=== PATIENT | female | born 1995 | race American Indian/Alaskan Native ===

== ENCOUNTER 2017-03-04 21:20 | Inpatient (IN) | payer MEDICAID ==
[2017-03-04] MEDS ORDERED: LACTATED RINGERS 1,000 ML ONE (22:05)
[2017-03-04] MEDS ORDERED: POLYCILLIN/NS 2 GM/100 ML 2 GM/100 ML BAG IV ONE ×2 (22:30→23:11)
[2017-03-04 22:52] LABS: Hematocrit 38.6 % (30.3-42.9); Hemoglobin 12.5 gm/dl (10.1-14.3); Mean Corpuscular HGB Conc 33 % (30-34); Mean Corpuscular Hemoglobin 32 pg (28-32); Mean Corpuscular Volume 97 fl (79-97); Platelet Count 179 K/mm3 (140-440); Red Blood Count 3.98 M/mm3 (3.65-5.03); Red Cell Distribution Width 13.8 % (13.2-15.2); White Blood Count 9.6 K/mm3 (4.5-11.0)
[2017-03-04] MEDS ORDERED: ePHEDrine SULFATE IV PRN (23:11)
[2017-03-04] MEDS ORDERED: ZOFRAN IV PRN (23:11)
[2017-03-04] MEDS ORDERED: SUBLIMAZE IV PRN (23:11)
[2017-03-04] MEDS ORDERED: STADOL IV PRN (23:11)
[2017-03-04] MEDS ORDERED: BRETHINE IVP PRN (23:11)
[2017-03-04] MEDS ORDERED: BRETHINE SUB-Q PRN (23:11)
[2017-03-04] MEDS ORDERED: NARCAN 0.4 MG/1 ML IV PRN (23:11)
[2017-03-04] MEDS ORDERED: MINERAL OIL PO PRN (23:11)
[2017-03-04] MEDS ORDERED: XYLOCAINE 2% INFILTRATI ONE (23:11)
[2017-03-04] MEDS ORDERED: PITOCin/NS 20 UNIT/1000ML DRIP 20 UNITS/1,000 ML BAG IV SCH (23:45)
[2017-03-05] MEDS: PITOCin/NS 30 UNIT/500ML 30 UNITS/500 ML BAG IV SCH ×2 (02:15→07:31)
[2017-03-05] MEDS: POLYCILLIN/NS 1 GM/50 ML 1 GM/50 ML BAG IV SCH ×2 (02:15→07:30)
[2017-03-05] MEDS: LACTATED RINGERS 1,000 ML IV SCH ×2 (07:30→11:28)
[2017-03-05] MEDS ORDERED: ePHEDrine SULFATE ONE (09:21)
--- NOTE | 2017-03-05 09:32 | Ultrasound Report ---
ULTRASOUND OB LIMITED History: well being Technique: Transabdominal ultrasound with Doppler interrogation. Gestation: Single Position: Cephalic Amniotic Fluid: Normal ANNIE = 9.8 cm Placenta: Anterior Placental Grade: 1 Heart Rate: 152 BPM Cervical length: Obscured cm (Normal > 3 cm)
[2017-03-05] MEDS ORDERED: fentaNYL-BUPIV 2 MCG/ML-0.125% 200 MCG/100 ML BAG EPIDURAL ONE (10:02)
[2017-03-05] MEDS ORDERED: ePHEDrine SULFATE IV PRN (10:04)
--- NOTE | 2017-03-05 10:04 | Anesthesia Consultation ---
Anesthesia Consult and Med Hx Date of service: 03/05/17 - Airway Anesthetic Teeth Evaluation: Good ROM Head & Neck: Adequate Mental/Hyoid Distance: Adequate Intubation Access Assessment: Probably Good - Pre-Operative Health Status ASA Pre-Surgery Classification: ASA2, Emergency Proposed Anesthetic Plan: Epidural, Spinal - Pulmonary Hx Asthma: No COPD: No Hx Pneumonia: No - Cardiovascular System Hx Hypertension: No Hx Heart Attack/AMI: No Hx Valvular Heart Disease: No - Central Nervous System Hx Seizures: No CVA: No Hx Psychiatric Problems: No - Endocrine Hx Renal Disease: No Hx End Stage Renal Disease: No Hx Liver Disease: No Hx Hypothyroidism: No Hx Hyperthyroidism: No - Hematic Hx Anemia: No Hx Sickle Cell Disease: No - Other Systems Hx Alcohol Use: No Hx Substance Use: Yes (marijuana 2-3x/week) Hx Cancer: No
[2017-03-05] MEDS ORDERED: XYLOCAINE MPF 2% ONE (10:19)
[2017-03-05] MEDS ORDERED: fentaNYL-BUPIV 2 MCG/ML-0.125% 200 MCG/100 ML BAG EPIDURAL SCH (11:00)
--- NOTE | 2017-03-05 11:39 | History and Physical Report ---
History of Present Illness Date of examination: 03/05/17 Date of admission: 03/04/17 21:59 Chief complaint: rupture of membranes History of present illness: Pt is a 21 year old -[place] female KIRSTY 03/19/17 at 38w0d who presents with rupture of membranes at 2020 pm on 03/04/17. She denies contractions or vaginal bleeding. She has had care at [facility] since 8 wks complicated by obesity.She is GBS unknown. Past History Past Medical History: other (Obesity ) Past Surgical History: no surgical history Family/Genetic History: hypertension Social history: no significant social history - Obstetrical History Expected Date of Delivery: 03/19/17 Actual Gestation: 38 Week(s) 0 Day(s) : 2 Para: 1 Hx # Term Pregnancies: 1 Number of Pregnancies: 0 Spontaneous Abortions: 0 Induced : 0 Number of Living Children: 1 Medications and Allergies Allergies Allergy/AdvReac Type Severity Reaction Status Date / Time No Known Allergies Allergy Verified 10/16/13 14:55 Home Medications Medication Instructions Recorded Confirmed Last Taken Type Vit-Fe Fumar-FA [ 1 tab PO QDAY 03/04/17 03/04/17 03/03/17 History Vitamin] Active Meds: Active Medications Butorphanol Tartrate (Stadol) 2 mg IV Q2H PRN PRN Reason: Pain , Severe (7-10) Fentanyl (Sublimaze) 100 mcg IV Q2H PRN PRN Reason: Labor Pain Last Admin: 03/05/17 08:09 Dose: 100 mcg Ampicillin Sodium (Polycillin/Ns 1 Gm/50 Ml) 1 gm in 50 mls @ 100 mls/hr IV Q4HR SEFERINO PRN Reason: Protocol Last Admin: 03/05/17 07:30 Dose: 100 mls/hr Lactated Ringer's (Lactated Ringers) 1,000 mls @ 125 mls/hr IV DIRECT SEFERINO Last Admin: 03/05/17 11:28 Dose: 125 mls/hr Oxytocin/Sodium Chloride (Pitocin/Ns 20 Unit/1000ml Drip) 20 units in 1,000 mls @ 125 mls/hr IV DIRECT SEFERINO Oxytocin/Sodium Chloride (Pitocin/Ns 30 Unit/500ml) 30 units in 500 mls @ 4 mls /hr IV TITR SEFERINO PRN Reason: Protocol Last Titration: 03/05/17 11:28 Dose: 20 ml/hr, 20 mls/hr Fentanyl/Bupivacaine/Sodium Chlor (Fentanyl-Bupiv 2 Mcg/Ml-0.125%) 200 mcg in 100 mls @ 12 mls/hr EPIDURAL TITR SEFERINO PRN Reason: Protocol Mineral Oil (Mineral Oil) 30 ml PO QHS PRN PRN Reason: Constipation Naloxone HCl (Narcan 0.4 Mg/1 Ml) 0.1 mg IV Q2MIN PRN PRN Reason: Res Rate </= 8 or 02 SAT < 92% Ondansetron HCl (Zofran) 4 mg IV Q8H PRN PRN Reason: Nausea And Vomiting Review of Systems All systems: negative - Vital Signs Vital signs: Vital Signs Temp Resp 98.5 F 22 03/04/17 21:35 03/04/17 21:35 Temp Pulse Resp BP Pulse Ox 98.0 F 76 18 107/57 100 03/05/17 10:31 03/05/17 11:39 03/05/17 10:31 03/05/17 10:59 03/05/17 11:39 - Physical Exam Breasts: Positive: deferred Cardiovascular: Regular rate Lungs: Positive: Clear to auscultation Abdomen: Positive: soft (obese, gravid ) Genitourinary (Female): Positive: normal external genitalia Uterus: Positive: enlarged (gravid ) Extremities: Positive: normal - Obstetrical FHR: auscultation normal Uterine Contraction Monitor Mode: External Cervical Dilatation: 5.5 Cervical Effacement Percentage: 80 station: -3 Uterine Contraction Pattern: Regular Uterine Tone Measurement Phase: Resting Uterine Contraction Intensity: Moderate Results Result Diagrams: 03/04/17 22:20 All other labs normal. Assessment and Plan A: IUP at 38w0d Premature rupture of membranes Obesity GBS unknown P: Admit to labor and delivery. GBS prophylaxis Routine intrapartum care. IUPC and FSE placed secondary to difficulty monitoring the contraction pattern and heart tones.
--- NOTE | 2017-03-05 11:41 | Event Note ---
Date: 03/05/17 Pt comfortable with epidural. FHTs: Category II with variable decel to 80s with contractions. SVE: /-1. Continue intrapartum care. Begin amnioinfusion. Closely monitor maternal and status.
[2017-03-05] MEDS ORDERED: NACL 0.9% 500 ML IV SCH (12:00)
--- NOTE | 2017-03-05 13:43 | Event Note ---
Date: 03/05/17 Pt comfortable with epidural. FHTs Category II Tracing. SVE:100/0. Pt too numb to push. Plan to decrease epidural by half and labor down. Continue routine intrapartum care.
--- NOTE | 2017-03-05 14:36 | Procedure Note ---
OB Delivery Note - Delivery Date of Delivery: 03/05/17 Surgeon: CASSIA LINDQUIST Estimated blood loss: 200cc - Vaginal Delivery presentation: vertex Delivery position: OA Intrapartum events: PROM->1hr before delivery, decreased FHT variability, mult.variable deceleratio Delivery induction: none Delivery augmentation: rupture of membranes, pitocin Delivery monitor: internal FHT, internal uterine Route of delivery: Delivery placenta: spontaneous Delivery cord: 3 umbilical vessels Episiotomy: none Delivery laceration: none Anesthesia: epidural Delivery comments: Pt progressed to complete/complete/+2 and pushed to deliver a viable female over intact perineum under epidural anesthesia by . Head delivered inn SYLVIA position quickly followed by shoulders and body. Tight nuchal cord x 1 delivered through. Cord clamped and cut and handed to nurse in attendance. Placenta delivered spontaneously. Vagina and perineum explored. No lacerations noted. EBL 200 mL. - Infant A at 1 minute: 8 at 5 minutes: 9 Gender: Female (2840g (6lb 4 oz))
[2017-03-05] MEDS ORDERED: MOTRIN PO PRN ×2 (16:10→17:08)
[2017-03-05] MEDS ORDERED: PHENERGAN PO PRN (17:08)
[2017-03-05] MEDS ORDERED: LANSINOH TP PRN (17:08)
[2017-03-05] MEDS ORDERED: NORCO 5/325 PO PRN (17:08)
[2017-03-05] MEDS ORDERED: BENADRYL PO PRN (17:08)
[2017-03-05] MEDS ORDERED: DULCOLAX PR PRN (17:08)
[2017-03-05] MEDS ORDERED: PHENERGAN PR PRN (17:08)
[2017-03-05] MEDS ORDERED: MILK OF MAGNESIA PO PRN (17:08)
[2017-03-05] MEDS ORDERED: SODIUM CHLORIDE FLUSH SYRINGE 10 ML IV SCH (17:08)
[2017-03-05] MEDS ORDERED: ZOFRAN IV PRN (17:08)
[2017-03-05] MEDS ORDERED: TUCKS PAD TP PRN (17:08)
[2017-03-05] MEDS ORDERED: TYLENOL PO PRN (17:08)
[2017-03-05] MEDS ORDERED: PITOCin/NS 20 UNIT/1000ML DRIP 20 UNITS/1,000 ML BAG IV SCH (18:00)
[2017-03-06] MEDS: FEOSOL PO SCH ×3 (01:14→22:02)
[2017-03-06] MEDS: MOTRIN PO PRN ×3 (04:42→23:55)
[2017-03-06] MEDS ORDERED: BOOSTRIX IM ONE (06:00)
[2017-03-06 06:40] LABS: Hemoglobin 12.2 gm/dl (10.1-14.3)
--- NOTE | 2017-03-06 08:25 | Progress Note ---
Assessment and Plan A/P doing well, VSS tolerating diet pain controlled with motrin rh+ no rhogam incated unsure of cotnrol Bottle feeding d/c tomorrow to f/u in 4 weeks Subjective - Subjective Date of service: 03/06/17 Principal diagnosis: s/p Patient reports: appetite normal, voiding normally, pain well controlled, flatus , ambulating normally : doing well, bottle feeding Objective - Vital Signs Latest vital signs: Vital Signs Temp Pulse Resp BP Pulse Ox 03/06/17 04:42 18 03/06/17 00:58 98.7 F 76 20 129/61 03/05/17 21:00 99 F 79 18 115/61 03/05/17 16:35 99.7 F H 86 18 107/58 03/05/17 16:00 85 133/57 03/05/17 15:45 82 112/62 03/05/17 15:29 76 103/51 03/05/17 15:14 98 H 117/61 03/05/17 14:59 80 118/57 03/05/17 14:44 85 121/70 03/05/17 14:42 98.3 F 80 18 122/59 03/05/17 14:37 94 H 122/59 03/05/17 14:30 86 100 03/05/17 14:25 84 100 03/05/17 14:20 83 100 03/05/17 14:16 99 H 116/67 03/05/17 14:15 111 H 100 03/05/17 13:45 87 113/53 03/05/17 13:29 90 100 03/05/17 13:24 84 98 03/05/17 13:19 83 99 03/05/17 13:14 80 104/55 100 03/05/17 13:09 84 100 03/05/17 13:08 89 56 L 03/05/17 13:04 73 100 03/05/17 13:01 76 98/56 03/05/17 12:59 76 100 03/05/17 12:54 78 100 03/05/17 12:49 75 100 03/05/17 12:45 73 115/61 03/05/17 12:44 71 100 03/05/17 12:39 75 100 03/05/17 12:34 76 100 03/05/17 12:30 74 89/51 03/05/17 12:29 69 100 03/05/17 12:24 72 100 03/05/17 12:19 75 100 03/05/17 12:16 75 113/54 03/05/17 12:14 78 100 03/05/17 12:09 84 100 03/05/17 12:04 77 100 03/05/17 11:59 79 117/54 100 03/05/17 11:54 81 100 03/05/17 11:49 79 100 03/05/17 11:45 85 117/46 03/05/17 11:44 82 100 03/05/17 11:39 76 100 03/05/17 11:34 77 100 03/05/17 11:29 79 100 03/05/17 11:24 78 100 03/05/17 11:19 83 100 03/05/17 11:14 75 100 03/05/17 11:11 82 88 03/05/17 11:09 82 100 03/05/17 11:04 76 100 03/05/17 10:59 80 107/57 100 03/05/17 10:54 73 100 03/05/17 10:49 75 100 03/05/17 10:45 77 105/58 03/05/17 10:44 76 100 03/05/17 10:39 76 100 03/05/17 10:34 80 100/58 100 03/05/17 10:31 98.0 F 77 18 100/58 03/05/17 10:27 75 100 03/05/17 10:22 74 100 03/05/17 10:17 76 100 03/05/17 10:15 75 128/65 03/05/17 10:12 80 100 03/05/17 10:07 92 H 99 03/05/17 10:04 81 82 L 03/05/17 10:03 79 128/77 03/05/17 10:02 82 100 03/05/17 09:59 79 125/76 03/05/17 09:57 73 113/58 97 03/05/17 09:55 78 109/58 03/05/17 09:53 81 103/52 03/05/17 09:52 87 98 03/05/17 09:51 78 109/51 03/05/17 09:50 75 143/63 03/05/17 09:47 80 117/61 03/05/17 09:45 80 121/64 03/05/17 09:44 88 99 03/05/17 09:43 84 124/69 03/05/17 09:41 86 117/63 03/05/17 09:39 83 100 03/05/17 09:32 79 99 03/05/17 09:27 78 97 03/05/17 09:22 85 99 03/05/17 09:18 79 82 L 03/05/17 09:17 79 99 03/05/17 09:12 75 99 03/05/17 09:06 74 98 03/05/17 09:02 53 L 74 L 03/05/17 09:01 82 98 03/05/17 08:56 79 98 Intake and Output 03/05/17 03/06/17 03/06/17 22:59 06:59 14:59 Intake Total 360 360 Output Total 800 Balance -440 360 Intake: Oral 360 Intake, Free Water 360 Output: Urine 800 Void 800 Other: Total, Intake Amount 360 Total, Output Amount 800 # Voids Void 1 1 - Exam Breasts: Present: normal Cardiovascular: Present: Regular rate, Normal S1 Lungs: Present: Clear to auscultation, Normal air movement Abdomen: Present: normal appearance, soft, normal bowel sounds. Absent: distention, tenderness, guarding Vulva: both: normal Uterus: Present: normal, firm, fundal height below umbilicus Extremities: Present: normal Deep Tendon Reflex Grade: Normal +2 Incision: Present: normal, dry, intact
--- NOTE | 2017-03-06 08:26 | Discharge Summary ---
Providers - Providers Date of Admission: 03/04/17 21:59 Date of discharge: 03/07/17 Attending physician: CASSIA LINDQUIST 03/05/17 17:08 Consult to Forming Fixer [CONS] Routine Reason For Exam: assistance with , SNS Primary care physician: CASSIA LINDQUIST Hospitalization Delivery: Episiotomy: none Incision: normal, dry, intact Other procedures: none Discharge diagnosis: IUP at term delivered Mayer baby: female Condition at discharge: Good Disposition: DC-01 TO HOME OR SELFCARE Plan - Discharge Medications Prescriptions: Ibuprofen [Motrin] 600 mg PO Q8H PRN #30 tablet PRN Reason: Pain oxyCODONE /ACETAMINOPHEN [Percocet 5/325] 1 tab PO Q6HR PRN #30 tablet PRN Reason: Pain - Provider Discharge Summary Activity: routine, no sex for 6 weeks, no strenuous exercise Diet: routine Instructions: routine Additional instructions: [] Smoking cessation referral if applicable(refer to patient education folder for contact #) [] Refer to [facility] Booklet Call your doctor immediately for: * Fever > 100.5 * Heavy vaginal bleeding ( >1 pad per hour) * Severe persistent headache * Shortness of breath * Reddened, hot, painful area to leg or breast * Drainage or odor from incision. * Keep incision clean and dry at all times and follow doctor's instructions regarding bathing/showering - Follow up plan Follow up: CASSIA LINDQUIST MD [Primary Care Provider] - 03/27/17
[2017-03-06] MEDS: PRENATAL VITAMIN PO SCH (10:17)
[2017-03-06] MEDS ORDERED: M-M-R II VACCINE SUB-Q ONE (14:36)
[2017-03-07] MEDS: MOTRIN PO PRN (05:38)
[2017-03-07] MEDS: FEOSOL PO SCH (10:33)
[2017-03-07] MEDS: PRENATAL VITAMIN PO SCH (10:33)
[2017-03-07 13:48] VITALS: BP 119/73
== END 2017-03-07 14:15 | disposition home or self-care (01) | DRG 775 ==
LOC: TRG 21:20 → LD 21:59 → OB 03-05 16:46
PROVIDERS: ADMIT Obstetrics & Gynecology; ATTEND Obstetrics & Gynecology
PROC: 10E0XZZ Delivery of Products of Conception, External Approach (ICD-10-PCS; principal; 2017-03-05)
PROC: 3E0S3CZ (ICD-10-PCS; 2017-03-05)
PROC: 00HU33Z Insertion of Infusion Device into Spinal Canal, Percutaneous Approach (ICD-10-PCS; 2017-03-05)
PROC: 3E0234Z Introduction of Serum, Toxoid and Vaccine into Muscle, Percutaneous Approach (ICD-10-PCS; 2017-03-06)
DX: O42.02 Full-term premature rupture of membranes, onset of labor within 24 hours of rupture (principal); O76 Abnormality in fetal heart rate and rhythm complicating labor and delivery; O69.1XX0 Labor and delivery complicated by cord around neck, with compression, not applicable or unspecified; O99.214 Obesity complicating childbirth; E66.9 Obesity, unspecified; Z68.37 Body mass index [BMI] 37.0-37.9, adult; Z23 Encounter for immunization; Z37.0 Single live birth; Z3A.38 38 weeks gestation of pregnancy
CPT/HCPCS: 36415; 76815; 85014; 85018; 85027; 86850; 86900; 86901; 99211; G0463; J0290; J2590; J3010; J7040; J7120